=== PATIENT | female | born 1985 | race Two or more races ===

== ENCOUNTER → 2024-07-22 | Outpatient (CLI) | payer MEDICAID, SELFPAY ==
--- NOTE | 2024-07-22 12:04 | XR_ITS ---
Examination: Screening digital mammography, bilateral Computer aided detection 3-D breast Tomosynthesis, bilateral Date and time of exam: 07/22/2024, 12:07 PM Comparisons: Obtained out of 10 in the currently available. Indications: Screening Technique: Nonmagnified MLO, CC views of the breasts to been obtained, reconstructed from 3-D Tomosynthesis images. R2 computer aided detection program utilized for evaluation of suspicious masses and/or abnormal calcifications. 3-D Tomosynthesis images obtained. Technologist: Findings: The breasts are heterogeneously dense, which may obscure small masses. Asymmetry anterior medial right breast seen on the CC view. Otherwise, no evidence of abnormal masses or suspicious calcifications. Impression: Right breast asymmetry as above. Spot compression views and possible ultrasound evaluation recommended. BI-RADS category 0: Incomplete assessment; need additional imaging evaluation
== END | disposition home or self-care (01) ==
PROVIDERS: Referring Provider Internal Medicine; Visit Provider Internal Medicine
DX: Z12.31 Encounter for screening mammogram for malignant neoplasm of breast (principal); R92.8 Other abnormal and inconclusive findings on diagnostic imaging of breast; N64.89 Other specified disorders of breast
CPT/HCPCS: 77063; 77067

== ENCOUNTER → 2024-10-04 | Outpatient (CLI) | payer MEDICAID, SELFPAY ==
--- NOTE | 2024-10-04 14:00 | XR_ITS ---
Examination: Breast ultrasound, unilateral, right complete Date and time of exam: October 04, 2024 1513 hours INDICATIONS: Mammogram July 22, 2024 asymmetry anterior medial right breast noted on the CC view Technique: Real-time parks scale ultrasonographic imaging performed right breast including all 4 quadrants as well as nipple retroareolar and axillary region. Findings: 5:00 nodule circumscribed 10 x 10 mm IMPRESSION: BI-RADS Category 3: Probably benign findings One additional 6 month right breast sonogram follow-up is needed to document stability of 5:00 nodule right breast
--- NOTE | 2024-10-04 14:30 | XR_ITS ---
Examination: Diagnostic digital mammography, unilateral, right Computer aided detection 3-D breast Tomosynthesis, unilateral Date and time of exam: October 04, 2024 1530 hours INDICATIONS: Mammogram July 14, 2024 right breast asymmetry anterior medial right breast on the CC view Technique: Nonmagnified MLO, CC views of the right breast have been obtained, reconstructed from 3-D Tomosynthesis images. R2 computer aided detection program utilized for evaluation of suspicious masses and/or abnormal calcifications. 3-D Tomosynthesis images obtained. Findings: The breast is heterogeneously dense, which may obscure small masses Stable asymmetry inner right breast anterior depth Impression: BI-RADS category 3: Probably benign findings One additional 6 month right mammogram follow-up is needed
== END | disposition home or self-care (01) ==
PROVIDERS: PCP Family Medicine; Referring Provider Family Medicine; Visit Provider Family Medicine
DX: R92.331 Mammographic heterogeneous density, right breast (principal); N63.14 Unspecified lump in the right breast, lower inner quadrant
CPT/HCPCS: 76641; 77061; 77065; G0279

== ENCOUNTER 2025-04-09 02:17 | Emergency (ER) | payer MEDICAID, SELFPAY ==
--- NOTE | 2025-04-09 02:21 | EKG_ITS ---
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
[2025-04-09 02:25] VITALS: BP 101/48; BP 123/78; PULSE 133; RESP 22; TEMP 36.4; O2SAT 99
--- NOTE | 2025-04-09 02:34 | PD.EDRME ---
Rapid Medical Screening Exam RME Arrival date/time: 04/09/25 02:17 This is a case of 39-year-old female who came in in the emergency room due to chest pain and shortness of breath worsening of the symptoms this patient decided to start consult here in the emergency room Chief Complaint: General Adult/Misc Complain Time Seen by Provider: 04/09/25 02:33 Vital signs: Vital Signs Temperature 97.6 F 04/09/25 02:25 Pulse Rate 133 H 04/09/25 02:25 Respiratory Rate 22 H 04/09/25 02:25 Blood Pressure 123/78 04/09/25 02:25 Pulse Oximetry (%) 99 04/09/25 02:25 Oxygen Delivery Method Room Air 04/09/25 02:25 Exam: Lungs sound is clear no crackles no rales no retraction no stridor and RRR no murmur Clinical Impression: Chest pain
[2025-04-09 02:38] VITALS: BMI 33.5
[2025-04-09 02:54] LABS: Collection Type, Urine Clean Catch
[2025-04-09 03:01] LABS: Basophils # (Auto) 0.0 Thou/mm3 (0.0-0.2); Basophils % (Auto) 0 % (0-2.5); Eosinophils # (Auto) 0.2 Thou/mm3 (0.0-0.5); Eosinophils % (Auto) 2 % (0-10); Hematocrit 43.1 % (36.0-46.0); Hemoglobin 14.4 g/dL (12.0-16.0); Immature Granulocytes Auto 0.05 Thou/mm3 (0.00-0.00); Lymphocytes # (Auto) 2.7 Thou/mm3 (1.0-4.8); Lymphocytes % (Auto) 28 % (10-50); Mean Corpuscular HGB Conc 33.4 g/dl (31.0-37.0); Mean Corpuscular Hemoglobin 30.1 pg (25.0-35.0); Mean Corpuscular Volume 90 fL (80-100); Monocytes # (Auto) 0.5 Thou/mm3 (0.0-0.8); Monocytes % (Auto) 5 % (0-12); Neutrophils # (Auto) 6.5 Thou/mm3 (1.8-7.7); Neutrophils % (Auto) 66 % (37-80); Nucleated Red Blood Cell # 0.00 Thou/mm3 (0.00-0.00); Nucleated Red Blood Cell % 0 /100 WBC (0); Platelet Count 261 Thou/mm3 (140-440); RDW Standard Deviation 43.3 fL (36.4-46.3); Red Blood Count 4.78 Miln/mm3 (4.00-5.20); White Blood Count 9.9 Thou/mm3 (3.6-11.0)
[2025-04-09 03:05] LABS: Bacteria,Urine 1+; Bilirubin,Urine Negative (Negative); Blood,Urine Negative (Negative); Clarity,Urine Clear (Clear/Hazy); Color,Urine Colorless (Lt Yel-Yel); Glucose, Urine Negative (Negative); Ketones,Urine Negative (Negative); Leukocyte Esterase,Urine Negative (Negative); Nitrite,Urine Negative (Negative); PH,Urine 6.5 (5.0-7.0); Protein,Urine Trace (Neg - Trace); RBC,Urine < 1 /hpf (0-3); Specific Gravity,Urine 1.010 (1.001-1.035); Squamous Epithelial Cell,Urine 5 /hpf (0-5); Urobilinogen,Urine Negative mg/dL (0.0-1.0); WBC,Urine 2 /hpf (0-5)
[2025-04-09 03:06] LABS: HCG Qualitative,Urine Negative
[2025-04-09 03:07] VITALS: BP 109/80; PULSE 110; RESP 25; O2SAT 100
[2025-04-09 03:14] LABS: D-Dimer < 250 ng/mL (<600)
[2025-04-09 03:15] LABS: Alanine Aminotransferase 26 U/L (10-49); Albumin, Serum 5.0 gm/dL (3.5-5.0); Albumin/Globulin Ratio 2.4 (1.2-2.2); Alkaline Phosphatase 92 U/L (46-116); Anion Gap 10 (7-16); Aspartate Amino Transferase 22 U/L (0-34); BUN/Creatinine Ratio 6 Ratio (12-20); Bilirubin,Total 0.8 mg/dL (0.3-1.2); Blood Urea Nitrogen < 5 mg/dL (9-23); Calcium 9.5 mg/dL (8.3-10.6); Calcium (Corrected) 9.5 mg/dL (8.5-10.1); Carbon Dioxide 23.6 mMol/L (20.0-31.0); Chloride 107 mMol/L (98-107); Creatinine (Component) 0.8 mg/dL (0.6-1.3); Estimated Creatinine Clearance 96.0 mL/min (>60); Globulin 2.1 gm/dL (2.3-3.5); Glucose 189 mg/dL (74-106); Osmolality,Calculated 283 (275-295); Potassium 3.3 mMol/L (3.4-5.1); Sodium 141 mMol/L (136-145); Total Protein 7.1 gm/dL (5.7-8.2); Troponin I < 0.002 ng/mL (0.0-0.045); eGFR > 60 See Note
[2025-04-09 03:20] LABS: B-Type Natriuretic Peptide < 20 pg/mL (0-100)
--- NOTE | 2025-04-09 03:21 | EDNOTE_ITS ---
ED Arrhythmia Palp. RME/HPI General Chief Complaint: General Adult/Misc Complain Stated Complaint: CHEST PAIN,HEADACHE Time Seen by Provider: 04/09/25 02:33 Arrival date/time: 04/09/25 02:17 RME / HPI RME / HPI narrative: 04/09/25 02:17 This is a case of 39-year-old female who came in in the emergency room due to chest pain and shortness of breath worsening of the symptoms this patient decided to start consult here in the emergency room Dr. Centeno?[facility] Main ED Evaluation: 39 y/o female who was actively hyperventilating upon arrival with Hx of Anxiety, HTN, and Fibromyalgia presents to ED c/o severe headache, palpitations, left arm heaviness, hot flashes, abdominal pain, and nausea s/p starting Nifedipine ER 30 mg x 1 week ago. States symptoms do not feel similar to those of prior anxiety attacks. Denies recent long distance traveling, oral contraceptives, and LE swelling. Reports SHx of Cholecystectomy. Impression: Chest pain Related Data Allergies Allergy/AdvReac Type Severity Reaction Status Date / Time No Known Allergies Allergy Verified 04/09/25 02:19 Review of Systems Review of Systems Systems Reviewed: All systems reviewed, normal except as documented Past Medical History Past Medical History CARDIAC: Positive Hypertension MUSCULOSKELETAL: Positive Fibromyalgia PSYCHO/SOCIAL: Positive Anxiety ED Exam Narrative Physical exam: GENERAL APPEARANCE: alert and oriented x 4, well-developed, well-nourished, no acute distress VITALS: All vitals were reviewed and the pulse ox is 99% on room air, which is normal according to my interpretation. HEENT: Normocephalic, atraumatic; pupils equal, round, reactive to light; EOMI; mucous membranes pink, moist; oropharynx clear NECK: Supple LUNGS: CTABL; no wheezes, no rales, no rhonchi HEART: Resting tachycardia between 100 and 120 bpm with mild holosystolic murmurnormal S1, S2 ABDOMEN: non distended; normal BS; soft, no tenderness, no guarding, no rebound; no masses, no organomegaly, no hernia BACK: no CVA tenderness EXTREMITIES: atraumatic; no edema, no calf tenderness, negative dk sign NEUROLOGIC: awake; alert and oriented x4; cranial nerves II-XII grossly intact; no focal sensory or motor deficits PSYCHIATRIC: appropriate mood and affect SKIN: warm, dry, normal color; no rashes Course Quality Measures none Orders Category Date Time Status EKG (ED ONLY) *Do not use* NOW Care 04/09/25 02:21 Completed EKG (ED Only) Stat Exams 04/09/25 02:21 Draft BNP [B-Type Natriuretic Peptide] Stat Lab 04/09/25 02:49 Completed CBC Stat Lab 04/09/25 02:49 Completed Comprehensive Metabolic Panel Stat Lab 04/09/25 02:49 Completed D-Dimer Stat Lab 04/09/25 02:49 Completed HCG Qualitative,Urine Stat Lab 04/09/25 02:49 Completed Troponin I Stat Lab 04/09/25 02:49 Completed Urinalysis Stat Lab 04/09/25 02:49 Completed Vital Signs Vital signs: Vital Signs Temperature 97.6 F 04/09/25 02:25 Pulse Rate 133 H 04/09/25 02:25 Respiratory Rate 22 H 04/09/25 02:25 Blood Pressure 123/78 04/09/25 02:25 Pulse Oximetry (%) 99 04/09/25 02:25 Oxygen Delivery Method Room Air 04/09/25 02:25 Arrhythmia/Palpitations MDM Narrative MDM Narrative:: Scribe Attestation: Sendy Bhandari am scribing for and in the presence of Dr. Centeno. Provider Notation: Although this document has been carefully reviewed, there may still be some phonetic and other typographical errors. These errors are purely grammatical due to imperfections in the software program and should not be construed in any way to compromise the substance of the patient's medical care during this visit. Patient data External records reviewed:: [facility] previous records (Reviewed prior ED records from 07/27/22. Patient was seen for Acute abdominal pain.) Clinical information provided by:: patient Social determinants that could affect healthcare access:: mental health (Anxiety) Patient has the following chronic illnesses:: Anxiety, Fibromyalgia, Marijuana use, HTN How is presenting disease/condition affected by chronic disease/condition?: exacerbated by Evaluation data The following diagnostics were reviewed and interpreted by me:: lab results and EKG tracing(s) (EKG at 0230 shows sinus tachycardia at 121, normal axis, no ectopy, no signs of acute ischemia, per my interpretation.) Lab and/or radiology exams considered but not ordered:: None Interpretation Summary: See MDM above Medications / Prescriptions Medications or Prescriptions considered but not ordered:: None Medication administrations:: See above if any Consultations Consultation(s) initiated? (list below): No Diagnosis Differential diagnosis arrhythmia/palpitations: palpitations, anxiety, sinus tachycardia, artial fibrillation, artial flutter, ventricular premature beats and ventricular tachycardia Most likely diagnosis given after review of the tests above:: See clinical impression below Admission Indicated Admission indicated?: not indicated Explain why admission is indicated or not indicated:: Patient has no emergent abnormalities in their studies and can be managed on an outpatient basis. Admission Request Was there a request for admission?: No Disposition Plan Disposition Plan: Discharge Discharge Attestation Discharge Attestation: The patient and all family members were given an opportunity to ask questions and understood the discharge instructions. Discharge instructions specifically effects, indications for sooner follow up or return to the emergency department, and the expected course of current diagnosis. Patient condition: Stable Discharge Plan Plan Patient Disposition: HOME (Self Care) Discharge Disposition comment: Stable for discharge home Patient condition on transfer: Stable Prescriptions/Referrals Referrals: Romero Madrid MD [Primary Care Provider, Family Practice] - In 1 week Problem List Clinical Impression: Heart palpitations, Headache, Chest pain, Nausea, Hot flashes Patient/Caregiver Discharge Instructions Discharge Activity: activity as tolerated Education Materials: Self-Care for Headaches, ED Chest Pain, Uncertain Cause, ED Palpitations Additional Instructions: Please return to the emergency department if you have any further medical problems and we will help you. Otherwise you should follow-up with your primary care doctor within the next several days Print Language: Kittitian Stand Alone Forms: Viviana Award Info., Patient Portal Info Letter
[2025-04-09] MEDS: SODIUM CHLORIDE 0.9% 1000 ML 1,000 ML 999 ML IV (03:52)
[2025-04-09] MEDS: METOCLOPRAMIDE INJ 5 MG/ML VIAL 2 ML IVP (03:53)
[2025-04-09] MEDS: KETOROLAC INJ 30 MG/ML VIAL 15 MG IVP (03:54)
[2025-04-09] MEDS: LORazepam 2 MG/ML VIAL 1 MG IVP (03:55)
[2025-04-09 04:00] VITALS: BP 113/83; PULSE 105; RESP 23; O2SAT 97
[2025-04-09 05:03] VITALS: BP 101/71; PULSE 86; RESP 14; O2SAT 96
== END 2025-04-09 05:35 | disposition home or self-care (01) ==
PROVIDERS: Nurse Practitioner Family; Emergency Provider Emergency Medicine; PCP Family Medicine
DX: R00.2 Palpitations (principal); R51.9 Headache, unspecified; R07.9 Chest pain, unspecified; N95.1 Menopausal and female climacteric states; I10 Essential (primary) hypertension; F41.9 Anxiety disorder, unspecified; M79.7 Fibromyalgia
CPT/HCPCS: 36415; 80053; 81001; 81025; 83880; 84484; 85025; 85379; 93005; 96361; 96374; 96375; 99283; J1200; J1885; J2060; J2765; J7030

== ENCOUNTER → 2025-04-27 | Outpatient (CLI) | payer MEDICAID, SELFPAY ==
--- NOTE | 2025-04-27 13:30 | XR_ITS ---
Examination: Diagnostic digital mammography, unilateral, right Computer aided detection 3-D breast Tomosynthesis, unilateral Date and time of exam: April 27, 2025, 1325 hours INDICATIONS: Mammogram July 14, 2024 right breast asymmetry anterior medial right breast on the cc view Technique: Nonmagnified MLO, CC views of the right breast have been obtained, reconstructed from 3-D Tomosynthesis images. R2 computer aided detection program utilized for evaluation of suspicious masses and/or abnormal calcifications. 3-D Tomosynthesis images obtained. Findings: The breast is heterogeneously dense, which may obscure small masses Focal asymmetry is identical medial right breast on the CC view Impression: BI-RADS category 0: Incomplete: Needs additional imaging evaluation Repeat right breast sonography is needed to document stability of 5:00 nodule 10 x 10 mm described on the right breast sonogram 01/04/2025
== END | disposition home or self-care (01) ==
LOC: CDIM 13:18
PROVIDERS: Referring Provider Family Medicine; Visit Provider Family Medicine
DX: N63.14 Unspecified lump in the right breast, lower inner quadrant (principal); R92.8 Other abnormal and inconclusive findings on diagnostic imaging of breast
CPT/HCPCS: 77061; 77065; G0279